=== PATIENT | female | born 1975 | race Caucasian/White ===

== ENCOUNTER → 2016-08-18 | Outpatient (CLI) | payer BC ==
[~2016-08-18] MED LIST: BCP TD; CALCIUM 1200 W/1 SGL PO; CIPRO 500MG TA500 MG PO; CLINDAMYCIN300 MG PO; DHA; LORTAB 5/500 501 TAB PO; MICROGESTIN 1.51 TAB PO; PRENATAL1 TA1 PO; SUDAFED60 MG PO; VITAMIN C500 MG PO; VITAMINS
== END ==
LOC: MC.RAD 08:47
DX: Z12.31 Encounter for screening mammogram for malignant neoplasm of breast (principal)

== ENCOUNTER → 2017-08-21 | Outpatient (CLI) | payer BC | LOC: MC.RAD 13:12 | DX: Z12.31 Encounter for screening mammogram for malignant neoplasm of breast (principal) ==

== ENCOUNTER → 2018-09-13 | Outpatient (CLI) | payer BC | LOC: MC.RAD 10:59 | DX: Z12.31 Encounter for screening mammogram for malignant neoplasm of breast (principal); Z98.890 Other specified postprocedural states ==

== ENCOUNTER → 2019-09-30 | Outpatient (CLI) | payer BC | LOC: MC.RAD 14:15 | DX: Z12.31 Encounter for screening mammogram for malignant neoplasm of breast (principal) ==

== ENCOUNTER → 2020-11-25 | Outpatient (CLI) | payer OTHER | LOC: MC.RAD 09-30 14:15 | DX: Z12.31 Encounter for screening mammogram for malignant neoplasm of breast (principal) ==

== ENCOUNTER → 2021-09-22 | Outpatient (CLI) | payer OTHER | LOC: COL.RAD 12:10 | DX: R22.2 Localized swelling, mass and lump, trunk (principal) ==

== ENCOUNTER → 2021-11-26 | Outpatient (CLI) | payer OTHER | LOC: MC.RAD 13:25 | DX: Z12.31 Encounter for screening mammogram for malignant neoplasm of breast (principal) ==

== ENCOUNTER → 2024-01-08 | Outpatient (CLI) | payer OTHER ==
[2005-11-09 16:10] VITALS: TEMP 98.7
== END ==
LOC: MC.RAD 05:40
DX: Z12.31 Encounter for screening mammogram for malignant neoplasm of breast (principal)